=== PATIENT | female | born 1995 | race Caucasian/White ===

== ENCOUNTER 2017-05-24 16:34 | Emergency (ER) | payer MEDICAID ==
[~2017-05-24] VITALS: Ht 154.9 cm; Wt 50.5 kg
[~2017-05-24 16:34] MED LIST: PREN1TAB74 PO
[2017-05-24 16:39] VITALS: Ht 154.9 cm; Wt 50.5 kg
--- NOTE | 2017-05-24 16:59 | ERD ---
ER Documentation Chief Complaint Date/Time DATE: 05/24/17 TIME: 16:57 Chief Complaint pelvic pain starting yesterday; sm vag bleed; 5wks HPI Patient is a 22-year-old female who is approximately 5 weeks complaining of pelvic pain that began yesterday and one episode of light vaginal spotting. She has not had any continued bleeding. She has no dysuria hematuria or increased urinary frequency. No nausea vomiting or diarrhea. She was seen at an outside hospital today and had blood work and ultrasound which showed that her beta hCG was increasing and she had a single IUP with pole visualized. She states that she was concerned because last week she was told that she was approximately 9 weeks but today the ultrasound and said she was 5 weeks . She called her clinic who told to go to the emergency room. This is why she is here ROS All systems reviewed and are negative except as per history of present illness. Medications Home Meds Reported Medications Vit-Iron Fumarate-FA ( Vitamin Formula) 1 Tab Tablet, 1 TAB PO , TAB 09/26/14 Allergies Allergies: Coded Allergies: No Known Allergy (Unverified , 10/20/14) FmHx Family History: No diabetes Physical Exam Vitals Vital Signs Date Time Temp Pulse Resp B/P Pulse Ox O2 Delivery O2 Flow Rate FiO2 05/24/17 16:39 98.4 85 18 140/72 98 Physical Exam General: well developed, well nourished, alert, nontoxic, no distress onsilar erythema or edema, uvula midline, no exudates, no kissing tonsils, no drooling Respiratory: Clear to auscaultation bilaterally, speaks in full sentences, no use of accesory muscles or labored breathing, no rales, ronchi, or wheezing Cardiovascular: RRR, No murmurs GI: soft, non tender, non distended Procedures/MDM 22-year-old female presents with pelvic pain and one episode of vaginal spotting since yesterday. She was just seen today at an outside facility and had a benign workup including blood work which demonstrated her beta hCG was increasing as well as a ultrasound that was not concerning for ectopic. I reviewed all of the results here and I reviewed the case with Dr. Rosales and we agree that she is suitable for outpatient management and needs a follow with primary care for follow-up examination in 1-2 days however at this time she had a complete workup earlier today at an outside facility and therefore we do not believe she needs further testing at this time. Recommended this patient follow up with her primary care doctor within 48 hours or return to the emergency room for any worsening of symptoms. However this time I do believe there is suitable for outpatient management. I answered all their questions and they agreed with the plan and were discharged home. Departure Diagnosis: Primary Impression: Pelvic pain complicating Condition: Stable JAYCE BUSTAMANTE PA-C May 24, 2017 16:59
--- NOTE | 2017-05-24 18:07 | RADRPT ---
PROCEDURE: OB Ultrasound. CLINICAL INDICATION: Positive test. Pelvic pain. TECHNIQUE: Ultrasound of the pelvis was performed with transabdominal and transvaginal sonography in the axial and sagittal planes. COMPARISON: No prior study is available for comparison. FINDINGS: There is a single intrauterine gestational sac. pole is not visualized. Yolk sac is present. Mean sac diameter is 1.27 cm. Menstrual age by ultrasound dates is 6 weeks 0 days. This indicates an expected date of delivery of 01/17/2018. The right ovary appears normal measuring 2.9 x 1.6 x 2.7 cm. The left ovary appears normal measuring 2.5 x 1.4 x 2.1 cm. Color Doppler and pulsed Doppler sonography demonstrate normal flow to the ovaries. There is no other pelvic mass or free fluid. IMPRESSION: 1. Single intrauterine gestational sac measuring 1.27 cm. pole is not present, which may ind icate failed . Follow-up ultrasound in 10 days is advised. 2. Otherwise unremarkable study. RPTAT: QQ .Gian Wolf MD, MD Date Time Electronically viewed and signed by .Gian Wolf MD, on 05/24/2017 18:07 .R/
== END 2017-05-24 17:10 | disposition home or self-care (01) ==
LOC: FTE 16:34
DX: O26.891 Other specified pregnancy related conditions, first trimester (principal); R10.2 Pelvic and perineal pain; Z3A.01 Less than 8 weeks gestation of pregnancy
CPT/HCPCS: 76801; 76817; Z7502

== ENCOUNTER 2018-10-08 14:05 | Outpatient (CLI) | END 2018-10-08 18:38 | disposition home or self-care (01) ==

== ENCOUNTER 2018-12-23 23:14 | Inpatient (IN) | payer MEDICAID ==
[~2018-12-23] VITALS: Ht 154.9 cm; Wt 68.5 kg
[2018-12-24] MEDS ORDERED: LACTATED RINGER'S 1,000 ML IV PRN (00:07)
[2018-12-24 00:17] VITALS: BP 115/63; PULSE 91; RESP 18
[2018-12-24] MEDS ORDERED: CARBOPROST 250 MCG INJ IM PRN (00:30)
[2018-12-24] MEDS ORDERED: AMPICILLIN 2 GM/NS (PMX) 100 ML IV ONE (00:30)
[2018-12-24] MEDS ORDERED: MINERAL OIL LIGHT 10 ML VIAL TOP ONE (00:30)
[2018-12-24] MEDS ORDERED: OXYTOCIN 30 UNITS/LR 500 ML IV SCH ×2 (00:30)
[2018-12-24] MEDS ORDERED: BUTORPHANOL 2 MG INJ IV PRN (00:30)
[2018-12-24] MEDS ORDERED: MISOPROSTOL 200 MCG TAB PR PRN (00:30)
[2018-12-24] MEDS ORDERED: LIDOCAINE 1% (MPF) 30 ML INJ INJ PRN (00:30)
[2018-12-24] MEDS ORDERED: OXYTOCIN 30 UNITS/LR 500 ML IV PRN (00:30)
[2018-12-24] MEDS ORDERED: IBUPROFEN 600 MG TAB PO PRN (00:30)
[2018-12-24] MEDS ORDERED: METHYLERGONOVINE 0.2 MG INJ IM PRN (00:30)
[2018-12-24] MEDS: LACTATED RINGER'S 1,000 ML IV SCH ×6 (01:28→23:27)
--- NOTE | 2018-12-24 02:00 | PREAC ---
Date/Time of Note Date/Time of Note DATE: 12/24/18 TIME: 01:59 Anesthesia Eval and Record Evaluation Time Pre-Procedure Interview DATE: 12/24/18 TIME: 01:59 Age 23 Sex female NPO: 8 hrs Preoperative diagnosis in labor Planned procedure Labor epidural Past Medical History Past Medical History: Includes Heme: Anemia Surgery & Anesthesia Issues No known issue Meds Anticoagulation: No Beta Nic within 24 hr: No Reason Beta Nic not given: Pt. not on B-Nic Reported Medications Vit-Iron Fumarate-FA ( Vitamin Formula) 1 Tab Tablet, 1 TAB PO, TAB 09/26/14 Current Medications Lactated Ringer's 1,000 ml @ 125 mls/hr Q8H IV Last administered on 12/24/18at 01:28; Admin Dose 125 MLS/HR; Start 12/24/18 at 00:07 Butorphanol Tartrate (Stadol) 2 mg Q2H PRN IV PAIN LEVEL 4-7; Start 12/24/18 at 00:30 Lidocaine (Xylocaine 1% (Mpf)) 30 ml ONCE PRN INJ PAIN LEVEL 4-7; Start 12/24/18 at 00:30 Oxytocin/Lactated Ringer's 500 ml @ 500 mls/hr ONCE POST IV ; Start 12/24/18 at 00:30 Oxytocin/Lactated Ringer's 500 ml @ 125 mls/hr POST IV ; Start 12/24/18 at 00:30 Ibuprofen (Motrin) 600 mg ONCE PRN PO PAIN LEVEL 4-6; Start 12/24/18 at 00:30 Lactated Ringer's 1,000 ml @ 2,000 mls/hr Q30M PRN IV ANESTHESIA Last administered on 12/24/18at 01:06; Admin Dose 2,000 MLS/HR; Start 12/24/18 at 00:07 Oxytocin/Lactated Ringer's 500 ml @ 0 mls/hr ONCE PRN IV BLEEDING; Start 12/24/18 at 00:30 Methylergonovine Maleate (Methergine) 0.2 mg ONCE PRN IM BLEEDING; Start 12/24/18 at 00:30 Carboprost Tromethamine (Hemabate) 250 mcg ONCE PRN IM BLEEDING; Start 12/24/18 at 00:30 Misoprostol (Cytotec) 1,000 mcg ONCE PRN MS BLEEDING; Start 12/24/18 at 00:30 Meds reviewed: Yes Allergies Coded Allergies: No Known Drug Allergies (Verified Allergy, Unknown, 12/24/18) Allergies Reviewed: Yes Labs/Studies Labs Reviewed: Reviewed by anesthesiologist Result Diagram: 12/24/18 0056 Laboratory Tests 12/24/18 00:56 Blood Bank Test 12/24/18 00:56 Blood Type O POSITIVE Rh Immune Globulin Candidate NO test: Positive Pre-procedure Exam Last vitals Vital Signs Date Temp Pulse Resp B/P (MAP) Pulse Ox O2 O2 Flow FiO2 Time Delivery Rate 12/24/18 98.2 91 18 115/63 Room Air 00:17 (80) Airway: Adequate mouth opening Mallampati: Mallampati II Teeth: Normal Lung: Normal Heart: Normal ASA Physical Status ASA physical status: 2 Emergency: None Planned Anesthetic Neuraxial: Epidural Pre-operative Attestations Prior to commencing anesthesia and surgery, the patient was re-evaluated, there was verification of: *The patient's identity *The results of appropriate recent lab work and preoperative vital signs *The above evaluation not changing prior to induction *Anesthetic plan, risk benefits, alternative and complications discussed with patient/family; questions answered; patient/family understands, accepts and wishes to proceed. DESIREE MEDELLIN MD Dec 24, 2018 02:00
[2018-12-24] MEDS ORDERED: FENTAnyl 2MCG/ML-ROPIV 0.2% 100 ML ONE (02:03)
[2018-12-24] MEDS ORDERED: NALOXONE (0.4 MG/ML) INJ IV PRN (02:30)
[2018-12-24] MEDS ORDERED: DIPHENHYDRAMINE 50 MG INJ IV PRN (02:30)
--- NOTE | 2018-12-24 02:37 | TRIAGE ---
OB Triage Datetime Report Generated by CPN: 12/24/2018 02:36 Datetime: 12/24/2018 02:01 Pain Assessment Pain Scale: 9 Pain Presence: Intermittent Pain Type: Contraction; Pressure Pain Location: Abdomen; Back; Perineum Pain Relief Measures: Comfort Measures Datetime: 12/24/2018 01:40 Stage of : Labor Maternal Assessment Level of Consciousness: Fully Conscious Labor Evaluation Frequency: 3-6 Monitor Mode: External Duration (sec)2399: 40-60 Quality: Moderate Resting Tone Chalfont: Relaxed Heart Rate FHR Baseline Rate: 145 Monitor Mode: External US Variability: Moderate 6-25 bpm Accelerations: 15X15 Pain Assessment Pain Scale: 9 Pain Presence: Intermittent Pain Type: Contraction; Pressure Pain Location: Abdomen; Back Pain Goal: 3 Datetime: 12/24/2018 00:50 Assessment Type: Admission Assessment Time of Arrival: 12/23/2018 23:10 EGA: 36.3 Arrived By: Wheelchair Arrived From: Home Chief Complaint: nw/ limited PNC c/o ucs and vag discharge. States last saw OB over 1 month ago Movement: Present Contractions: Regular Time Contractions Began: 12/23/2018 11:00 Contractions: q3-5 Rupture of Membranes: Unsure Vaginal Bleeding: None Vaginal Discharge: Present Recent Sexual Intercouse: Denies Abdominal Trauma: Not Applicable Patient Complaints: Contractions Time Provider Notified: 12/24/2018 00:03 Provider Notified: Jose Initial Plan: EFM,SVE Maternal Assessment Level of Consciousness: Fully Conscious DTR's/Clonus: DTRs 2+; No Clonus Headache: Temporal Blurred Vision: No Respiratory Effort: Unlabored; Regular Rhythm; Equal Expansion Breath Sounds, Left: Clear and Equal Breath Sounds, Right: Clear and Equal Nausea/Vomiting: Denies RUQ Epigastric Pain: Denies Lower Extremities Edema: None Degree: None Upper Extremities Edema: None Degree: None Facial Edema: None Fall Risk Assessment History of Falling: (0) No Secondary Diagnosis: (0) No Ambulatory Aid: (0) Bedrest/Nurse Assist IV Therapy: (20) Yes Gait: (0) Normal/Bedrest/Immobile Mental Status: (0) Oriented to Own Ability Fall Score: 20 Fall Risk Score Definition: No Risk: No action required Pain Assessment Pain Scale: 9 Pain Presence: Intermittent Pain Type: Contraction; Pressure Pain Location: Abdomen; Back Pain Goal: 3 Datetime: 12/23/2018 23:55 Labor Evaluation Frequency: 2-6 Monitor Mode: External Quality: Moderate Pattern: Normal: <= 5 Contractions in 10 Minutes Resting Tone Chalfont: Relaxed Heart Rate FHR Baseline Rate: 140 Monitor Mode: External US FHR Baseline Changes: No Baseline Change Variability: Moderate 6-25 bpm Accelerations: 15X15 Decelerations: Variable Category: Category II Vaginal Exam Dilatation (cms): 4.0 Effacement (%): 80 Station: -2 Exam By: Monae Hare Membrane Status: Intact Amniotic Fluid Amount: None Amniotic Fluid Odor: None Vaginal Bleeding: Scant Pool: Negative Nitrazine: Negative Cervix, Consistency: Soft Cervix, Position: Posterior Presentation 'A': Cephalic Datetime: 10/08/2018 18:18 Variability: Moderate 6-25 bpm Pain Assessment Pain Scale: 0 Pain Goal: 0 Datetime: 10/08/2018 17:26 Stage of : OB Triage Labor Evaluation Frequency: 0 Monitor Mode: External Pattern: Normal: <= 5 Contractions in 10 Minutes Resting Tone Chalfont: Relaxed Heart Rate FHR Baseline Rate: 145 Monitor Mode: External US Variability: Moderate 6-25 bpm Accelerations: 15X15 Decelerations: None Category: Category I Pain Assessment Pain Scale: 5 Pain Presence: Intermittent Datetime: 10/08/2018 16:23 Stage of : OB Triage Labor Evaluation Frequency: 0 Monitor Mode: External Pattern: Normal: <= 5 Contractions in 10 Minutes Resting Tone Chalfont: Relaxed Heart Rate FHR Baseline Rate: 145 Monitor Mode: External US Variability: Moderate 6-25 bpm Accelerations: 15X15 Decelerations: None Category: Category I Pain Assessment Pain Scale: 5 Pain Presence: Intermittent Pain Type: Pressure; Ache Pain Location: Abdomen Pain Goal: 0 Pain Relief Measures: Comfort Measures Datetime: 10/08/2018 15:41 Stage of : OB Triage Labor Evaluation Frequency: 0 Monitor Mode: External Pattern: Normal: <= 5 Contractions in 10 Minutes Resting Tone Chalfont: Relaxed Heart Rate FHR Baseline Rate: 145 Monitor Mode: External US Variability: Moderate 6-25 bpm Accelerations: 15X15 Decelerations: None Category: Category I Datetime: 10/08/2018 15:13 Comments: US AT BEDSIDE Datetime: 10/08/2018 14:35 Monitor Mode: External Datetime: 10/08/2018 14:19 Stage of : OB Triage Assessment Type: Triage Time of Arrival: 12/24/2018 01:00 EGA: 36.4 Arrived By: Ambulatory Arrived From: triage Chief Complaint: ABD PIAN, PRESSURE. DISCHARGE Movement: Present Contractions: Denies/Absent Rupture of Membranes: Denies Vaginal Bleeding: None Vaginal Discharge: Present Recent Sexual Intercouse: Denies Abdominal Trauma: Not Applicable Patient Complaints: Other Initial Plan: EFMX2, CALL MD Maternal Assessment Level of Consciousness: Fully Conscious DTR's/Clonus: DTRs 2+; No Clonus Headache: Denies Blurred Vision: No Respiratory Effort: Unlabored; Regular Rhythm; Equal Expansion Breath Sounds, Left: Clear and Equal Breath Sounds, Right: Clear and Equal Nausea/Vomiting: Denies RUQ Epigastric Pain: Denies Lower Extremities Edema: None Degree: None Upper Extremities Edema: None Degree: None Facial Edema: None Temperature Route: Oral Fall Risk Assessment History of Falling: (0) No Secondary Diagnosis: (0) No Ambulatory Aid: (0) Bedrest/Nurse Assist IV Therapy: (0) No Gait: (0) Normal/Bedrest/Immobile Mental Status: (0) Oriented to Own Ability Fall Score: 0 Fall Risk Score Definition: No Risk: No action required Monitor Mode: External (Annotations: INITIAL PLACEMENT ) Monitor Mode: External US (Annotations: INITIAL PLACEMENT ) Pain Assessment Pain Scale: 6 Pain Presence: Intermittent Pain Type: Pressure Pain Location: Abdomen
[2018-12-24] MEDS ORDERED: ACETAMINOPHEN 325 MG TAB PO PRN (04:00)
[2018-12-24] MEDS ORDERED: ACETAMINOPHEN 500 MG TAB PO ONE (04:05)
[2018-12-24] MEDS: EPHEDrine SULFATE 50 MG/5 ML SYG IV PRN ×4 (04:13→06:53)
[2018-12-24] MEDS ORDERED: AMPICILLIN 1 GM/NS (PMX) 50 ML IV SCH (04:30)
[2018-12-24] MEDS: ONDANSETRON 4 MG INJ IV PRN ×2 (05:19→23:27)
[2018-12-24] MEDS: FENTAnyl 2MCG/ML-ROPIV 0.2% 100 ML BAG EPI SCH (10:32)
--- NOTE | 2018-12-24 18:05 | HP ---
Date/Time of Note Date/Time of Note DATE: 12/24/18 TIME: 18:01 OB - History Hx of Present Free Text/Dictation December 24, 2018 Estimated Due Date: Jan 17, 2019 : 3 Para: 2 Care: Other (Insufficient care) Other Concerns: 23-year-old with IUP at 36 weeks and 4 days who presented to triage with complaint of uterine contractions and was noted to be 4 cm dilated. She started care initially with Dr. Hassan since 8 weeks. Her due date by ultrasound at 8 weeks not consistent with LMP is January 17 2019 Patient then lost follow-up and transferred her care to a [facility] clinic. She was seen by Dr. Galindo. She started again her care at 31-week after she stopped seeing Dr. Hassan at 23 weeks. Records are available and reviewed. Had a history of delivery due to incompetent cervix and prior and underwent cerclage placement and prior . She presented with complaint of contractions. She was admitted for management of possible labor however she did not have any cervical change. She was admitted for observation and for pain management and expectant management. GBS unavailable. Currently receiving ampicillin. UDS is positive for opiates however patient had been seen at [facility] and and 23 December due to painful contraction. She refused to receive terbutaline or oral nifedipine for symptomatic relief and strongly desired to proceed with induction. Past Family/Social History * Past Medical, Surgical, Family and Obstetric Histories reviewed from chart. OB Admission Exam Vital Signs Vital Signs Vital Signs Date Temp Pulse Resp B/P (MAP) Pulse Ox O2 O2 Flow FiO2 Time Delivery Rate 12/24/18 98.2 91 18 115/63 Room Air 00:17 (80) Physical Exam HEENT: WNL Lungs: Clear Abdomen: WNL Extremities: Normal Cervical Dilatation: 4cm Effacement: 50% Station: -3 Membranes: Intact Heart Rate: 130's Accelerations: Accelerations Present Decelerations: No Decelerations Varibility: Moderate Contractions on Admission: < 5 Minutes Apart Intensity: Moderate Last 72 hours Lab Results CBC & BMP 12/24/18 00:56 OB Assessment/Plan Other Assessment: symptomatic contractions at 36 weeks and 4 days False labor No cervical change noted during observation patient continued To be kept in the hospital for expectant management Discussed with the patient in case of rupture of membrane may proceed with induction All questions were answered At this time proceed with expectant management MATT RAYA MD Dec 24, 2018 18:05
[2018-12-24] MEDS ORDERED: MEPERIDINE 25 MG INJ IV ONE (18:30)
[2018-12-24] MEDS ORDERED: MEPERIDINE 25 MG INJ IM ONE (18:30)
[2018-12-24] MEDS ORDERED: PROMETHAZINE 25 MG TAB PO ONE (18:30)
[2018-12-25] MEDS: FENTAnyl 2MCG/ML-ROPIV 0.2% 100 ML BAG EPI SCH ×2 (00:29→08:11)
[2018-12-25] MEDS: LACTATED RINGER'S 1,000 ML IV SCH (06:00)
[2018-12-25] MEDS ORDERED: MINERAL OIL LIGHT 10 ML VIAL TOP PRN (08:00)
--- NOTE | 2018-12-25 09:53 | LDN ---
Date/Time of Note Date/Time of Note DATE: 12/25/18 TIME: 09:50 Delivery Summary after rotation from [facility] to [place] with loose nuchal cord x1 Weeks of Gestation 36w5d Placenta Delivered: Spontaneously Meconium: none Episiotomy: No Perineal laceration: 0 Anesthesia type: Epidural Estimated blood loss: 200 Sponge & Needle done & correct: Yes All needle counts correct: Yes Any foreign bodies felt in the: No Delivery Information Sex Sex: male Apgars 1 Minute: 9 5 Minute: 9 Suctioning Nose & mouth suctioned at anshul: Yes Delee suction performed: No Umbilical Cord Umbilical cord with: 3 Vessels Cord presentations: nuchal cord Nuchal cord present X: 1 Cord Blood was obtained: Yes Mother & Baby Disposition Disposition Mom & Baby to Maternity; Good: Yes Mom transferred to: Other () Baby to NICU: No CAPRICE SANTAMARIA MD Dec 25, 2018 09:53
[2018-12-25 11:00] VITALS: BP 119/75; PULSE 74; RESP 18
[2018-12-25] MEDS ORDERED: MISOPROSTOL 200 MCG TAB PR PRN (11:00)
[2018-12-25] MEDS ORDERED: CARBOPROST 250 MCG INJ IM PRN (11:00)
[2018-12-25] MEDS ORDERED: LANOLIN HPA 1 PKT TOP PRN (11:00)
[2018-12-25] MEDS ORDERED: ZOLPIDEM 5 MG TAB PO PRN (11:00)
[2018-12-25] MEDS ORDERED: WITCH HAZEL/GLYCERIN PAD PR PRN (11:00)
[2018-12-25] MEDS ORDERED: OXYTOCIN 30 UNITS/LR 500 ML IV PRN (11:00)
[2018-12-25] MEDS ORDERED: OXYCODONE/ASPIRIN (4.88/325) TAB PO PRN ×2 (11:00)
[2018-12-25] MEDS ORDERED: BENZOCAINE 20% 56 ML SPRAY TOP PRN (11:00)
[2018-12-25] MEDS ORDERED: METHYLERGONOVINE 0.2 MG INJ IM PRN (11:00)
[2018-12-25] MEDS: IBUPROFEN 600 MG TAB PO SCH ×2 (11:41→17:48)
[2018-12-25 12:00] VITALS: BP 111/72; PULSE 69; RESP 18
[2018-12-25 16:00] VITALS: BP 110/68; PULSE 71; RESP 18
--- NOTE | 2018-12-25 16:09 | NUR ---
SW CONSULT NOTE: Reviewed the pt's chart and met with the pt, the FoB, Radha Muñoz, : 08/30/1988 , and the pt's sister and mother at bedside. Pt was AA&Ox4. She had a bright affect. Pt is G-3 and P-3. GA is 36.4 weeks. EDC was on 01/17/19. Other children are 2y/o girl and an 11m/o son. Pt lives with the FoB and his mother and their 2 children. Pt is a homemaker. FoB works at a [employer]. Pt stated she started PNC with Dr. Hassan and at the end of her2nd trimester she switched to Dr. Galindo to deliver at [facility]. Pt stated she was recently hospitalized at [facility] with lower abdominal pain where she was teated for pain. Pt stated she was dissatisfied with the care there and decided to come to [facility] for treatment and delivery. Pt denied any drug alcohol use. She denied any DV. She stated she had a brief period of PP Depression after the of her 2nd child but it resolved. Pt stated she is enrolled in WIC and plans to breastfeed. Has a car seat, a crib, and a bassinet for the baby. FoB will transport home at discharge. SW discussed medi-[facility] and WIC for the baby. Educated re: PP depression and provided the pt with the Speak Up When You Are Down brochure and encouraged her to call for help if she does experience sxs of depression postnatally. Called the [facility] [phone]. Spoke with Jannie who stated the pt does not have an open case. Jannie stated in 2016 there were 2 referrals but they did not materialize into a case. Pt's UDS is positive at [facility] but this may be due to the pain Meds she received at [facility]. Discussed the pt and baby bonding with RN, Megan. No noted issues per RN. For safety purposes, they sent for cord tissue for the baby. Results are still pending. SW to be notified if results come back positive. Baby may be discharged to the parents when medically cleared. RN to provide the discharge instructions at time of discharge.
--- NOTE | 2018-12-25 18:25 | NUR ---
EOSS. PT, IS IN STABLE CONDITION . FUNDUS FIRM NORMAL BLEEDING NO COMPLAINED OF PAIN OR ANY PROBLEM UNDER OBSERVATION .
[2018-12-25 20:35] VITALS: BP 111/73; PULSE 76; RESP 19
[2018-12-25] MEDS: SENNA/DOCUSATE NA (8.6MG/50MG) TAB PO SCH (20:47)
[2018-12-26] MEDS: IBUPROFEN 600 MG TAB PO SCH ×5 (00:15→21:52)
[2018-12-26 04:00] VITALS: BP 110/62; PULSE 65; RESP 18
--- NOTE | 2018-12-26 04:59 | NUR ---
E.O.S.S: In stable condition Bonding well with baby. Feeding on demand.
[2018-12-26 07:55] VITALS: BP 125/75; PULSE 69; RESP 18
[2018-12-26] MEDS: SENNA/DOCUSATE NA (8.6MG/50MG) TAB PO SCH ×2 (09:29→21:52)
--- NOTE | 2018-12-26 09:34 | PAC ---
Date/Time of Note Date/Time of Note DATE: 12/26/18 TIME: 09:34 Post-Anesthesia Notes Post-Anesthesia Note Last documented vital signs Vital Signs Date Temp Pulse Resp B/P (MAP) Pulse Ox O2 O2 Flow FiO2 Time Delivery Rate 12/26/18 98.3 69 18 125/75 Room Air 07:55 (92) Activity: WNL Respiratory function: WNL Cardiovascular function: WNL Mental status: Baseline Pain reasonably controlled: Yes Hydration appropriate: Yes Nausea/Vomiting absent: Yes DESIREE MEDELLIN MD Dec 26, 2018 09:34
--- NOTE | 2018-12-26 14:31 | QN ---
Documentation Comment PPD #1 s/p Pt doing well. Breast and bottle feeding.Bleeding is less than yesterday. T= 98.3 BP 125/75 Fundus firm. Lochia minimal. Ext NT, no edema. WBC 12.6 Hgb 9.1 Plts 223K P: Continue care and plan d/c tomorrow. JARRED REILLY MD Dec 26, 2018 14:31
--- NOTE | 2018-12-26 15:14 | NUR ---
PATIENT CARE WAS TRANSFERRED TO [facility] AT THIS TIME PER YOAN, CHARGE NURSE. PATIENT STABLE WITH NO COMPLAINTS OF PAIN OR DISCOMFORT.
--- NOTE | 2018-12-26 15:14 | NUR ---
ASSUMED PLAN OF CARE FROM SAMIA GUNDERSON
[2018-12-26 16:00] VITALS: BP 100/70; PULSE 67; RESP 18
--- NOTE | 2018-12-26 18:49 | NUR ---
EOS CONDITION IS STABLE. MOM IS BREAST AND BOTTLE FEEDING ACCORDING TO HER CHOICE. AFEBRILE ALL SHIFT.NO EXCESSIVE BLEEDING. BONDING WELL WITH MOM AND FAMILY
[2018-12-26 20:15] VITALS: BP 120/74; PULSE 75; RESP 16
[2018-12-27 04:25] VITALS: BP 110/77; PULSE 66; RESP 18
--- NOTE | 2018-12-27 05:58 | NUR ---
E.O.S.S: In stable condition Bonding well with baby. Feeding on demand.
[2018-12-27] MEDS: IBUPROFEN 600 MG TAB PO SCH (06:00)
[2018-12-27 08:45] VITALS: BP 98/66; PULSE 66; RESP 18
[2018-12-27] MEDS ORDERED: DIPHTH/TET/ACEL PERTUSS (ADULT) 0.5 ML VIAL IM* ONE (09:00)
[2018-12-27] MEDS: SENNA/DOCUSATE NA (8.6MG/50MG) TAB PO SCH (09:00)
--- NOTE | 2018-12-27 11:34 | QN ---
Documentation Comment PPD#2 is stable afebrile tolerates diet No VB +BM voids VS stable Gen NAD Abd soft NT ND Genitalia No blood at perineum --->discharged with precautions --->Questions answered SHEYLA CUNNINGHAM M.D. Dec 27, 2018 11:34
--- NOTE | 2018-12-27 11:35 | DS ---
Date/Time of Note Date/Time of Note DATE: 12/27/18 TIME: 11:34 Discharge Summary Admission/Discharge Info Admit Date/Time Dec 24, 2018 at 00:03 Discharge Date/Time 12/27/2018 Discharge Diagnosis Patient Condition: Good Hospital Course uneventful Home Meds Reported Medications Vit-Iron Fumarate-FA ( Vitamin Formula) 1 Tab Tablet, 1 TAB PO, TAB 09/26/14 Primary Care Provider Care Physician No Primary SHEYLA CUNNINGHAM M.D. Dec 27, 2018 11:35
--- NOTE | 2018-12-27 12:10 | NUR ---
Discharge instructions given patient including signs and symptoms to watch out for and when to call the doctor. Patient verbalized understanding. Patient to call clinic for follow up appointment.
== END 2018-12-27 12:25 | disposition home or self-care (01) | DRG 805 ==
LOC: OBT 23:14 → L-D 23:14 → OBT 12-24 00:03 → L-D 12-24 00:03 → PP1 12-25 10:50
PROVIDERS: ADMIT Obstetrics & Gynecology Obstetrics; ATTEND Obstetrics & Gynecology Obstetrics
PROC: 10E0XZZ Delivery of Products of Conception, External Approach (ICD-10-PCS; principal; 2018-12-25)
DX: O69.81X0 Labor and delivery complicated by cord around neck, without compression, not applicable or unspecified (principal); O60.14X0 Preterm labor third trimester with preterm delivery third trimester, not applicable or unspecified; Z37.0 Single live birth; Z87.51 Personal history of pre-term labor; Z3A.36 36 weeks gestation of pregnancy
CPT/HCPCS: 62319; 76815; 80307; 81001; 84112; 85025; 85610; 85730; 86592; 86762; 86850; 86900; 86901; 87340; 99464; G0463; J2405; J2590; J3010; J7120